=== PATIENT | female | born 1990 | race African-American/Black ===

== ENCOUNTER → 2019-05-26 | Outpatient (CLI) | payer OTHER | LOC: OD 09:00 | PROVIDERS: ATTEND Family Medicine | DX: Z32.01 Encounter for pregnancy test, result positive (principal) | CPT/HCPCS: 81025 ==

== ENCOUNTER 2020-01-18 10:10 | Outpatient (CLI) | payer OTHER ==
--- NOTE | 2020-01-18 11:09 | Non Stress Test Report ---
Non Stress Test Datetime Report Generated by CPN: 01/18/2020 11:08 DEMOGRAPHIC Test Number: 1 EGA NST: 39.6 INDICATION Indication for Study (NST) Other: repeat NST NR in office VITAL SIGNS Temperature - NST: 97.7 Pulse - NST: 89 RESP - NST: 16 NBPSYS NST: 106 NBPDIA NST: 68 MONITORING Monitor Explained: Monitor Explained; Test Explained; Patient Verbalized Understanding Time on Monitor: 01/18/2020 10:23 Time off Monitor: 01/18/2020 10:53 NST INTERVENTIONS NST Interventions: PO Hydration; Reposition Patient Physician Notified NST: J. Crenshaw, CNM BABY A: [id number] BABY A Movement : Present Contraction Frequency : occasional FHR Baseline : 135 Accelerations : 15X15 Decelerations : None Variability : Moderate 6-25bpm NST Review: Meets Criteria for Reactive NST NST Review and Verified By : HODAN Horton Results: Reactive NST REPORT Report Trigger: Send Report
== END 2020-01-18 11:02 | disposition home or self-care (01) ==
LOC: LC 10:10
PROVIDERS: ATTEND Obstetrics & Gynecology
DX: Z36.89 Encounter for other specified antenatal screening (principal); Z3A.39 39 weeks gestation of pregnancy; Z88.0 Allergy status to penicillin
CPT/HCPCS: 59025

== ENCOUNTER 2020-01-22 12:02 | Outpatient (CLI) | payer OTHER ==
[2020-01-22 12:36] LABS: APPEARANCE,URINE SLIGHTLY-CLOUDY; BILIRUBIN,URINE NEGATIVE (NEGATIVE); COLOR,URINE YELLOW; GLUCOSE, URINE NEGATIVE (NEGATIVE); KETONES,URINE NEGATIVE (NEGATIVE); LEUKOCYTE ESTERASE,URINE TRACE (NEGATIVE); NITRITE,URINE NEGATIVE (NEGATIVE); PROTEIN,URINE NEGATIVE (NEGATIVE); UROBILINOGEN,URINE NEGATIVE mg/dL (<2.0)
[2020-01-22 13:01] LABS: URINE AMPHETAMINES SCREEN NEGATIVE; URINE BARBITURATES SCREEN NEGATIVE; URINE BENZODIAZEPINES SCREEN NEGATIVE; URINE COCAINE SCREEN NEGATIVE; URINE MARIJUANA (THC) SCREEN NEGATIVE; URINE METHADONE SCREEN NEGATIVE; URINE PHENCYCLIDINE SCREEN NEGATIVE
--- NOTE | 2020-01-22 13:36 | Non Stress Test Report ---
Non Stress Test Datetime Report Generated by CPN: 01/22/2020 13:35 DEMOGRAPHIC Test Number: 2 EGA NST: 40.3 INDICATION Indication for Study (NST) Other: possible SROM MONITORING Monitor Explained: Monitor Explained; Test Explained; Patient Verbalized Understanding Time on Monitor: 01/22/2020 12:31 Time off Monitor: 01/22/2020 13:03 NST INTERVENTIONS NST Interventions: PO Hydration Physician Notified NST: Dr Basil BABY A: [id number] BABY A Movement : Present Contraction Frequency : occasional FHR Baseline : 140 Accelerations : 15X15 Decelerations : None Variability : Moderate 6-25bpm NST Review: Meets Criteria for Reactive NST NST Review and Verified By : TMartin,RN NST Results: Reactive NST REPORT Report Trigger: Send Report
== END 2020-01-22 13:20 | disposition home or self-care (01) ==
LOC: LC 12:02
PROVIDERS: ATTEND Obstetrics & Gynecology
DX: O47.1 False labor at or after 37 completed weeks of gestation (principal); Z3A.40 40 weeks gestation of pregnancy; Z88.0 Allergy status to penicillin
CPT/HCPCS: 59025; 80307; 81005; 84112; 94760

== ENCOUNTER 2020-01-24 05:34 | Inpatient (IN) | payer OTHER ==
[2020-01-24] MEDS ORDERED: ONDANSETRON 4 MG TAB.RAPDIS ONE (06:07)
[2020-01-24 06:19] LABS: APPEARANCE,URINE CLEAR; BILIRUBIN,URINE NEGATIVE (NEGATIVE); COLOR,URINE YELLOW; GLUCOSE, URINE NEGATIVE (NEGATIVE); KETONES,URINE NEGATIVE (NEGATIVE); LEUKOCYTE ESTERASE,URINE NEGATIVE (NEGATIVE); NITRITE,URINE NEGATIVE (NEGATIVE); PROTEIN,URINE 30 mg/dL (NEGATIVE); URINE SPECIFIC GRAVITY 1.013; UROBILINOGEN,URINE NEGATIVE mg/dL (<2.0)
[2020-01-24 06:36] LABS: URINE AMPHETAMINES SCREEN NEGATIVE; URINE BARBITURATES SCREEN NEGATIVE; URINE BENZODIAZEPINES SCREEN NEGATIVE; URINE COCAINE SCREEN NEGATIVE; URINE MARIJUANA (THC) SCREEN NEGATIVE; URINE METHADONE SCREEN NEGATIVE; URINE PHENCYCLIDINE SCREEN NEGATIVE
[2020-01-24] MEDS ORDERED: OXYTOCIN 10 UNIT/ML VIAL ONE (07:23)
[2020-01-24] MEDS ORDERED: MISOPROSTOL 0.2 MG TABLET ONE (07:24)
[2020-01-24] MEDS ORDERED: LIDOCAINE 1% INJ-PF (10 MG/ML) 30 ML SDV ONE (07:24)
[2020-01-24] MEDS ORDERED: OXYTOCIN/0.9 % SODIUM CHLORIDE 30 UNIT/500 ML RTUINJ ONE (07:24)
[2020-01-24] MEDS ORDERED: CLINDAMYCIN 900 MG/D5W RTU 900 MG/50 ML RTUPB IV ONE ×2 (07:24→15:17)
--- NOTE | 2020-01-24 07:46 | Admission Physical ---
Datetime Report Generated by CPN: 01/24/2020 07:46 CURRENT ADMISSION Chief Complaint: Uterine Contractions Indication for Induction: Not Applicable Admit Impression : Term, Intrauterine ; Active Labor; Intact Membranes Admit Plan: Admit to Unit; Initiate Labor Protocol ALLERGIES Medication Allergies: Yes Medication Allergies: Penicillins (01/22/2020) Latex: No Latex Allergies Food Allergies: None Environmental Allergies: None OBSTETRICAL HISTORY EDC: 01/19/2020 00:00 : 1 Para: 0 Term: 0 : 0 SAB: 0 IAB: 0 Ectopic: 0 Livin Cesareans: 0 VBACs: 0 Multiple Births: 0 Gestational Diabetes: No Rh Sensitization: No Incompetent Cervix: No BRE: No Infertility: No ART Treatment: No Uterine Anomaly: No IUGR: No Hx Previous C/S: No Macrosomia: No Hx Loss/Stillborn: Yes PIH: No Hx : No Placenta Previa/Abruption: No Depression/PP Depression: No PTL/PROM: No Post Hemorrhage: No Current Procedures: Ultrasound; NST Obstetrical History Comments: G1- Current SEE RECORDS Alcohol: No Marijuana : No Cocaine: No Other Illicit Drugs: No Cigarettes: Never Smoker. [id number] MEDICAL HISTORY Diabetes: No Blood Transfusion: No Pulmonary Disease (Asthma, TB): Yes Breast Disease: No Hypertension: No [employer] Surgery: No Heart Disease: No Hosp/Surgery: No Autoimmune Disorder: No Anesthetic Complications: Unknown Kidney Disease: No Abnormal Pap Smear: Yes Neuro/Epilepsy: No Psychiatric Disorders: Yes Other Medical Diseases: No Hepatitis/Liver Disease: No Significant Family History: No Varicosities/Phlebitis: No Trauma/Violence : No Thyroid Dysfunction: No Medical History Comments: Anxiety used klonopin prior to , asthma last epidsode over ten years ago, no inhaler, HPV cleared at 6 month check up INFECTIOUS HISTORY Gonorrhea: No Genital Herpes: No Chlamydia: No Tuberculosis: No Syphilis: No Hepatitis: No HIV/AIDS Exposure: No Rash or Viral Illness: No HPV: Yes PHYSICAL EXAM General: Normal HEENT: Normal Neurologic: Normal Thyroid: Normal Heart: Normal Lungs: Normal Breast: Normal Back: Normal Abdomen: Normal Genitourinary Exam: Normal Extremities: Normal DTRs: Normal Pelvic Type: Adequate Vital Signs: Reviewed VAGINAL EXAM Dilatation: 4 Effacement: 90 Station: -2 MEMBRANES Pooling: Negative Membranes: Intact FETUS A EGA: 40.5 Monitoring: External US FHR- Baseline: 130 Variability: Moderate 6-25bpm Accelerations: 15X15 Decelerations: None FHR Category: Category I Estimated Weight (gm): 3500 Presentation: Vertex PLANS FOR LABOR AND DELIVERY Labor and Delivery: None Pain Management: Natural; Medications; Epidural Feeding Preference: Breast Benefit of Breast Feed Discussed: Yes Circumcision: Yes INFORMED CONSENT Signature: with User ID: [email or web address]
[2020-01-24 07:56] LABS: ABSOLUTE BASOPHILS # (AUTO) 0.1 10^3/uL (0.0-0.2); ABSOLUTE LYMPHOCYTES (AUTO) 1.8 10^3/uL (0.5-4.7); ABSOLUTE MONOCYTES (AUTO) 0.5 10^3/uL (0.1-1.4); ABSOLUTE NEUT (AUTO) 8.6 10^3/uL (1.7-8.2); BASOPHILS % (AUTO) 0.7 % (0-2); HEMATOCRIT 37.4 % (36.0-47.0); HEMOGLOBIN 12.8 g/dL (12.0-15.5); LYMPHOCYTES % (AUTO) 16.1 % (13-45); MEAN CORPUSCULAR HEMOGLOBIN 30.6 pg (27.0-33.4); MEAN CORPUSCULAR HGB CONC 34.2 g/dL (32.0-36.0); MEAN CORPUSCULAR VOLUME 90 fl (80-97); MONOCYTES % (AUTO) 4.8 % (3-13); PLATELET COUNT 125 10^3/uL (150-450); RED BLOOD COUNT 4.17 10^6/uL (3.72-5.28); RED CELL DISTRIBUTION WIDTH 14.5 % (11.5-14.0); SEGMENTED NEUTROPHILS % (AUTO) 78.4 % (42-78); TOTAL CELLS COUNTED % (AUTO) 100 %
[2020-01-24] MEDS ORDERED: EPHEDRINE SULFATE INJ 50 MG/1 ML AMPULE ONE (08:10)
[2020-01-24] MEDS ORDERED: FENTANYL/BUPIVACAINE/NS/PF 300 MCG/150 ML RTUINJ EPI ONE (08:11)
[2020-01-24] MEDS ORDERED: ROPIVACAINE HCL 0.2% INJ/PF (2 MG/ML) 20 ML SDV ONE (08:11)
[2020-01-24] MEDS: RINGERS SOLUTION,LACTATED 1,000 ML IV PRN ×2 (09:06→10:52)
[2020-01-24] MEDS ORDERED: DEXTROSE 5%-WATER 250 ML IV PRN (13:01)
[2020-01-24] MEDS ORDERED: ROPIVACAINE HCL 0.5% INJ/PF (5 MG/1 ML) 30 ML SDV ONE (14:10)
[2020-01-24] MEDS ORDERED: ACETAMINOPHEN WITH CODEINE #3 TABLET PO PRN (17:08)
[2020-01-24] MEDS ORDERED: DIPH/PERTUSS(ACELL)/TETANUS VAC/PF 0.5 ML SYR (>=10YO) IM PRN (17:08)
[2020-01-24] MEDS ORDERED: PROMETHAZINE HCL 25 MG SUPP.RECT PR PRN (17:08)
[2020-01-24] MEDS ORDERED: ZOLPIDEM TARTRATE 5 MG TABLET PO PRN (17:08)
[2020-01-24] MEDS ORDERED: OXYTOCIN/0.9 % SODIUM CHLORIDE 30 UNIT/500 ML RTUINJ IV PRN (17:08)
[2020-01-24] MEDS ORDERED: MAGNESIUM HYDROXIDE SUSP 30 ML UDCUP PO PRN (17:08)
[2020-01-24] MEDS ORDERED: MEASLES,MUMPS&RUBELLA VACC/PF 0.5 ML VIAL SUBCUT PRN (17:08)
[2020-01-24] MEDS ORDERED: ACETAMINOPHEN 650 MG SUPP.RECT PR PRN (17:08)
[2020-01-24] MEDS ORDERED: DIBUCAINE 1% OINTMENT 28 GM TP PRN (17:08)
[2020-01-24] MEDS ORDERED: DIPHENHYDRAMINE HCL 25 MG CAPSULE PO PRN (17:08)
[2020-01-24] MEDS ORDERED: PSEUDOEPHEDRINE HCL 30 MG TABLET PO PRN (17:08)
[2020-01-24] MEDS ORDERED: PROMETHAZINE HCL 25 MG TABLET PO PRN (17:08)
[2020-01-24] MEDS ORDERED: PROMETHAZINE HCL INJ 25 MG/1 ML VIAL IV PRN (17:08)
[2020-01-24] MEDS ORDERED: NA PHOS,M-B/NA PHOS,DI-BA (ADULT) 133 ML ENEMA PR PRN (17:08)
--- NOTE | 2020-01-24 19:23 | Warning Signs in Babies ---
VOD Warning Signs Datetime Report Generated by [facility]: 01/24/2020 19:22 VOD#608 -Warning Signs in Babies: Viewed with Parent(s)/Family (01/24/2020 19:15:Lauryn Billy RN)
--- NOTE | 2020-01-24 19:24 | Delivery Summary ---
Del Sum A-C Datetime Report Generated by CPN: 01/24/2020 19:24 DELIVERY PERSONNEL DELIVERY PERSONNEL: [id number] Delivery Doctor:: Tyson Reno MD DIRECTOR SUMMER SESSIONS:: Ant Burnett, DIRECTOR SUMMER SESSIONS Labor and Delivery Nurse:: Myrna Macario RN Nursery Nurse:: Allie Carrington RN Burlapper/CELL OPERATION SUPERVISOR: Vesta Mcgill CST Burlapper/CELL OPERATION SUPERVISOR: Nela [employer], EMPLOYEE RELATIONS CONSULTANT MATERNAL INFORMATION Delivery Anesthesia: Epidural Medications After Delivery: Pitocin 30 Units in 500ml NS/D5W Maternal Complications: None LABOR SUMMARY EDC: 01/19/2020 00:00 No. Babies in Womb: 1 Attempted: No Labor Anesthesia: Epidural LABOR INFORMATION Reason for Induction: Not Applicable Onset of Labor: 01/24/2020 10:43 Complete Dilatation: 01/24/2020 14:32 Oxytocin: Augmentation Group B Beta Strep: pos Antibiotics # of Doses: 2 Antibiotics Time of Last Dose: 01/24/2020 15:28 Name of Antibiotic Given: clindamycin Steroids Given: None Reason Steroids Not Administered: Not Applicable MEMBRANES Membranes Rupture Method: Artificial Rupture of Membranes: 01/24/2020 09:16 Length of Rupture (hr): 7.63 Amniotic Fluid Color: Clear Amniotic Fluid Amount: Moderate Amniotic Fluid Odor: None STAGES OF LABOR Stage 1 hr: 3 Stage 1 min: 49 Stage 2 hr: 2 Stage 2 min: 22 Stage 3 hr: 0 Stage 3 min: 3 Total Time in Labor hr: 6 Total Time in Labor min: 14 VAGINAL DELIVERY Episiotomy: None Laceration #1: Perineal Laceration Repair: Yes Laceration Repair Note: 2-0 vicryl repaired Sponge Count Correct: N/A CSECTION DELIVERY Primary Indication: N/A Secondary Indication: N/A CSection Incidence: N/A Labor: N/A Elective: N/A CSection Incision: N/A BABY A INFORMATION Infant Delivery Date/Time: 01/24/2020 16:54 Method of Delivery: Vaginal Nurse Controlled Delivery: No Born in Route : No : N/A Forceps: N/A Vacuum Extraction: N/A Shoulder Dystocia : No PRESENTATION/POSITION BABY A Presentation: Cephalic Cephalic Presentation: Vertex Vertex Position: Left Occipital Anterior Breech Presentation: N/A PLACENTA INFORMATION BABY A Placenta Delivery Time : 01/24/2020 16:57 Placenta Method of Delivery: Spontaneous Placenta Status: Delivered SCORES BABY A Heart Rate 1 min: >100 bpm Resp Effort 1 min: Good Cry Reflex Irritability 1 min: Cough or Sneeze or Pulls Away Muscle Tone 1 min: Active Motion Color 1 min: Blue/Pale SCORE 1 MIN: 8 Heart Rate 5 min: >100 bpm Resp Effort 5 min: Good Cry Reflex Irritability 5 min: Cough or Sneeze or Pulls Away Muscle Tone 5 min: Active Motion Color 5 min: Body [place], Extremities Blue SCORE 5 MIN: 9 INFANT INFORMATION BABY A Gestational Age at Delivery: 40.5 Gestational Status: Full Term- 39- 40.6 Weeks Outcome : Liveborn Condition : Stable Infant Sex: Male IDENTIFICATION BABY A Infant Verification Date/Time: 01/24/2020 18:08 ID Band Number: [id number] Mother's Name Verified: Yes Infant RN Verifying : ALFREDick, RN Additional Verifying Personnel: Rachel, HODAN WEIGHT/LENGTH BABY A Birthweight (gm): 3390 Infant Weight (lb): 7 Weight (oz): 8 Infant Length (in): 20.00 Length (cm): 50.80 CORD INFORMATION BABY A No. Cord Vessels: 3 Nuchal Cord : N/A Infant Suction: Mouth; Nose; Pharynx ASSESSMENT BABY A Infant Complications: None Physical Findings at Delivery: Within Normal Limits Skin to Skin: Yes Skin to Skin Time (min): 45 Transferred To: Remains with Mother BABY B INFORMATION : N/A SIGNATURES Signature: with User ID: [email or web address]
--- NOTE | 2020-01-24 19:24 | Birth Certificate Data ---
Cert Data Datetime Report Generated by CPN: 01/24/2020 19:24 CERTIFICATE DATA 47a. Care: Yes (01/18/2020 10:26:DC Barclay) 47b. Date of First Visit: 06/11/2019 00:00 (01/18/2020 10:26:DC Barclay) 47c. Date of Last Visit: 01/18/2020 00:00 (01/18/2020 10:26:DC Barclay) 47d. Number of Visits: 12 (01/18/2020 10:26:DC Barclay) 48a. Number of Prev Live Births: 0 (01/18/2020 10:26:Per Chandra RN) 48b. Now Livin (01/18/2020 10:26:Melva Kennedy RN) 48c. Live Births Now : 0 (01/18/2020 10:26:QS system process) 48e. Losses: 0 (01/18/2020 10:26:Per Chandra RN) RISK FACTORS IN THIS 49a. Diabetes: No (01/18/2020 10:26:Per Chandra RN) 49b. Hypertension: No (01/18/2020 10:26:Per Chandra RN) 49c. Previous Births: 0 (01/18/2020 10:26:Melva Kennedy RN) 49d. Stillborns: No (01/18/2020 10:26:Tiffany Pike RN) 49d. IUGR: No (01/18/2020 10:26:Per Chandra RN) 49e. Infertility Treatment: No (01/18/2020 10:26:Per Chandra RN) 49f. Previous Cesareans: 0 (01/18/2020 10:26:Per Chandra RN) Mother's Height 50b. Height Inches: 65 (01/18/2020 10:39:QS system process) Mother's Weight 51a. Pre- Weight (lbs): 143 (01/18/2020 10:26:DC Barclay) 51b. Weight at Delivery (lbs): 187 (01/22/2020 13:06:QS system process) Infections Present/Treated 53a. Gonorrhea: No (01/18/2020 10:26:Per Chandra RN) Results this Hospital Visit : Negative (01/18/2020 10:26:DC Barclay) 53b. Syphilis: No (01/18/2020 10:26:Per Chandra RN) Results this Hospital Visit: NONREACTIVE (01/24/2020 07:44:QS system process) 53c. Chlamydia: No (01/18/2020 10:26:Per Chandra RN) Results this Hospital Visit: Negative (01/18/2020 10:26:DC Barclay) 53d. Hepatitis B: No (01/18/2020 10:26:Per Chandra RN) Results this Hospital Visit: Negative (01/18/2020 10:26:Per Chandra RN) 53e. Hepatitis C: Negative (01/18/2020 10:26:DC Barclay) 53h. Mother Tested for HBsAG: Yes (01/18/2020 10:26:DC Barclay) 53i. Date Tested: 06/11/2019 00:00 (01/18/2020 10:26:DC Barclay) 53j. Test Result: Negative (01/18/2020 10:26:Per Chandra RN) Obstetric Procedures 54a, b, c. Obstetric Procedures: Ultrasound; NST (01/18/2020 10:26:Per Chandra RN) Cigarette Smoking 55a. 3 Months Before Preg - Ci (01/18/2020 10:26:Per Chandra RN) 55a. Packs: 0 (01/18/2020 10:26:Per Chandra RN) 55b. 1st Trimester of Preg- Ci (01/18/2020 10:26:Per Chandra RN) 55b. Packs: 0 (01/18/2020 10:26:Per Chandra RN) 55c. 2nd Trimester of Preg- Ci (01/18/2020 10:26:Per Chandra RN) 55c. Packs: 0 (01/18/2020 10:26:Per Chandra RN) 55d. 3rd Trimester of Preg- Ci (01/18/2020 10:26:Per Chandra RN) 55d. Packs: 0 (01/18/2020 10:26:Per Chandra RN) Onset of Labor 56a. PROM >12 Hrs: 7.63 (01/18/2020 10::QS system process) 56b. Precipitous Labor <3 Hrs: 6 (01/18/2020 10:26:QS system process) 56c. Prolonged Labor > 20 Hrs: 6 (01/18/2020 10:26:QS system process) 57a. Induction of Labor: Augmentation (01/18/2020 10:26:Elise Prado RN) 57c. Non-Vertex Presentation A: Vertex (01/18/2020 10:26:Tiffany Pike RN) 57d. Steroids - Lung Mat: None (01/18/2020 10:26:Elise Prado RN) 57d. Steroids - Lung Mat: Not Applicable (01/18/2020 10:26:Elise Prado RN) 57e. Antibiotics During Labor: 01/24/2020 15:28 (01/18/2020 10:26:Tiffany Pike RN) 57f. Mat [place] or Temp >100.4: 98.8 (01/18/2020 10:26:Tiffany Pike RN) 57g. Moderate/Heavy Meconium: Clear (01/24/2020 09:16:Myrna Macario RN) 57h. Intolerance of Labor: N/A (01/18/2020 10:26:Tiffany Pike RN) : N/A (01/18/2020 10:26:Tiffany Pike RN) 57i. Epidural/Spinal Anesthesia: Epidural (01/18/2020 10:26:Elise Prado RN) Method of Delivery 58a. Forceps - Unsuccessful A: N/A (01/18/2020 10:26:Tiffany Pike RN) 58b. Vacuum - Unsuccessful A: N/A (01/18/2020 10:26:Tiffany Pike RN) 58c. Presentation at 58c. Presentation at - A : Vertex (01/18/2020 10:26:Tiffany Pike RN) 58c. Presentation at - A : N/A (01/18/2020 10:26:Tiffany Pike RN) 58c. Presentation at - A : Cephalic (01/24/2020 14:32:Myrna Macario RN) Final Route and Method of Del 58d. Baby A Route/Delivery: Vaginal (01/18/2020 10:26:Tiffany Pike RN) 58e. Trial of Labor Attempted: No (01/18/2020 10:26:Elise Prado RN) 58e. Trial of Labor Attempted A: N/A (01/18/2020 10:26:Elise Prado RN) 58e. Trial of Labor Attempted B: N/A (01/18/2020 10:26:Elise Prado RN) Maternal Morbidity 59b. 3rd or 4th Degree Lacs: Perineal (01/18/2020 10:26:Tiffany Pike RN) 59b. 3rd or 4th Degree Lacs: First Degree (01/18/2020 10:26:Tiffany Pike RN) Birthweight Baby A: 3390 (01/18/2020 10:26:Arielle Jansen RN) 60a. Pounds : 7 (01/18/2020 10:26:QS system process) 60b. Ounces: 8 (01/18/2020 10:26:QS system process) 61. GA at Delivery Baby A: 40.5 (01/18/2020 10:26:Tiffany Pike RN) : Full Term- 39- 40.6 Weeks (01/18/2020 10:26:QS system process) 62a. 5 Minute Baby A: 9 (01/18/2020 10:26:QS system process)
[2020-01-24] MEDS: FAMOTIDINE 20 MG TABLET PO SCH (21:28)
[2020-01-24] MEDS: IBUPROFEN 800 MG TABLET PO SCH (21:28)
[2020-01-25] MEDS: DOCUSATE SODIUM 100 MG CAPSULE PO SCH ×3 (00:16→17:11)
[2020-01-25] MEDS: FERROUS SULFATE 325 MG TABLET PO SCH ×3 (00:16→17:11)
[2020-01-25] MEDS: IBUPROFEN 800 MG TABLET PO SCH ×3 (05:44→21:57)
[2020-01-25] MEDS: CLINDAMYCIN 900 MG/D5W RTU 900 MG/50 ML RTUPB IV SCH (07:34)
[2020-01-25 07:53] LABS: HEMATOCRIT 33.3 % (36.0-47.0); HEMOGLOBIN 11.2 g/dL (12.0-15.5); MEAN CORPUSCULAR HEMOGLOBIN 30.5 pg (27.0-33.4); MEAN CORPUSCULAR HGB CONC 33.5 g/dL (32.0-36.0); MEAN CORPUSCULAR VOLUME 91 fl (80-97); PLATELET COUNT 117 10^3/uL (150-450); RED BLOOD COUNT 3.66 10^6/uL (3.72-5.28); RED CELL DISTRIBUTION WIDTH 14.7 % (11.5-14.0); WHITE BLOOD COUNT 15.7 10^3/uL (4.0-10.5)
--- NOTE | 2020-01-25 09:22 | PDOC PROGRESS REPORT ---
Subjective-OB Progress Note for:: 01/25/20 - PP day #1, doing well, UOB, voiding, O+, Rubella Immune, Physical Exam (OB) Vital Signs: Temp Pulse Resp BP Pulse Ox 97.7 F 115 H 17 114/68 99 01/25/20 07:47 01/25/20 07:47 01/25/20 07:47 01/25/20 07:47 01/25/20 07:47 Intake & Output 01/24/20 01/25/20 01/26/20 06:59 06:59 06:59 Intake Total 1000 Output Total 600 Balance 400 Weight 85 kg - General General Appearance: Appears well, Alert In distress: None - PIH/Pre-Eclampsia Clonus: Negative Headache: Absent Epigastric Pain: No Visual Changes: No - Maternal Morbidity 59. Maternal Morbidity (serious complications experinced by the mother associated with labor and delivery: None of the above - Lochia Lochia Amount: Small 10-25 ml Lochia Color: Rubra/Red - Abdomen Description: Soft, Round Hernia Present: No Fundal Description: Firm, Midline Fundal Height: u/u - u/2 - Respiratory Respiratory Status: No respiratory distress - Abdominal Distension: No distension Tenderness: Nontender - Genitourinary Genitourinary Note: voiding - Extremities Upper extremity: Normal inspection Lower extremities: Normal inspection - Neurological Cognition: Normal Orientation: AAOx4 - Psychological Associated symptoms: Normal affect, Normal mood - Skin Skin Temperature: Warm Skin Moisture: Dry Objective-Diagnostic Laboratory: 01/25/20 07:20 01/25/20 07:20 WBC 15.7 H RBC 3.66 L Hgb 11.2 L Hct 33.3 L MCV 91 MCH 30.5 MCHC 33.5 RDW 14.7 H Plt Count 117 L Assessment and Plan(PN) - Assessment and Plan (1) (normal spontaneous vaginal delivery) Is this a current diagnosis for this admission?: Yes - Time Spent with Patient Time with patient: Less than 15 minutes Medications reviewed and adjusted accordingly: Yes - Disposition Anticipated Discharge Disposition: Home, Self Care Anticipated Discharge Timeframe: within 24 hours
[2020-01-25] MEDS: SENNOSIDES/DOCUSATE 8.6-50 MG 1 EACH TABLET PO SCH (09:50)
[2020-01-25] MEDS: FAMOTIDINE 20 MG TABLET PO SCH ×2 (09:50→21:59)
[2020-01-25] MEDS: PRENATAL VITAMIN W DHA CAPSULE PO SCH (09:50)
[2020-01-25] MEDS: GLYCERIN/WITCH HAZEL LEAF 1 EACH MED..WIPE TP PRN (09:53)
[2020-01-25] MEDS: BENZOCAINE/MENTHOL AEROSOL SPRAY 56 ML TOP PRN (09:53)
[2020-01-26] MEDS: IBUPROFEN 800 MG TABLET PO SCH ×2 (05:51→14:35)
[2020-01-26 08:16] VITALS: BP 131/82
[2020-01-26] MEDS: DOCUSATE SODIUM 100 MG CAPSULE PO SCH (09:24)
[2020-01-26] MEDS: FERROUS SULFATE 325 MG TABLET PO SCH (09:24)
[2020-01-26] MEDS: SENNOSIDES/DOCUSATE 8.6-50 MG 1 EACH TABLET PO SCH (09:25)
[2020-01-26] MEDS: FAMOTIDINE 20 MG TABLET PO SCH (09:25)
[2020-01-26] MEDS: PRENATAL VITAMIN W DHA CAPSULE PO SCH (09:25)
[2020-01-26] MEDS: BENZOCAINE/MENTHOL AEROSOL SPRAY 56 ML TOP PRN (09:38)
[2020-01-26 11:50] LABS: HEMATOCRIT 32.1 % (36.0-47.0); MEAN CORPUSCULAR HGB CONC 34.3 g/dL (32.0-36.0); MEAN CORPUSCULAR VOLUME 90 fl (80-97); PLATELET COUNT 122 10^3/uL (150-450); RED BLOOD COUNT 3.55 10^6/uL (3.72-5.28); RED CELL DISTRIBUTION WIDTH 14.8 % (11.5-14.0); WHITE BLOOD COUNT 9.7 10^3/uL (4.0-10.5)
--- NOTE | 2020-01-26 13:17 | PDOC DISCHARGE SUMMARY ---
Impression - Admit/DC Date/PCP Admission Date/Primary Care Provider: 01/24/20 07:22 GIOVANNY DE DIOS MD Discharge Date: 01/26/20 - Discharge Diagnosis (1) (normal spontaneous vaginal delivery) Is this a current diagnosis for this admission?: Yes (2) Perineal laceration during delivery, delivered Is this a current diagnosis for this admission?: Yes (3) Thrombocytopenia Is this a current diagnosis for this admission?: Yes - Assessment Summary: 29yo s/p vaginal delivery ppd2- stable and ready for discharge, understands warning s/s - Additional Information Resuscitation Status: Full Code Discharge Diet: As Tolerated, Regular Discharge Activity: Activity As Tolerated, Balance Activity w/Rest, No Lifting Over 10 Pounds, Pelvic Rest, No tub bath Referrals: GIOVANNY DE DIOS MD [Primary Care Provider] - Prescriptions: Ibuprofen [Motrin 800 mg Tablet] 800 mg PO Q8HP PRN #20 tablet PRN Reason: For Pain Scale 1-3 Home Medications: Pnv 102/Iron/Folate 1/Dss/Dha [Vitafol Fe+ Docusate Combo Pck] 1 each PO DAILY 01/18/20 Ibuprofen [Motrin 800 mg Tablet] 800 mg PO Q8HP PRN #20 tablet 01/26/20 Hospital Course 59. Maternal Morbidity (serious complications experinced by the mother associated with labor and delivery: None of the above Results Laboratory Results: WBC 9.7 10^3/uL (4.0-10.5) 01/26/20 11:28 RBC 3.55 10^6/uL (3.72-5.28) L 01/26/20 11:28 Hgb 11.0 g/dL (12.0-15.5) L 01/26/20 11:28 Hct 32.1 % (36.0-47.0) L 01/26/20 11:28 MCV 90 fl (80-97) 01/26/20 11:28 MCH 31.0 pg (27.0-33.4) 01/26/20 11:28 MCHC 34.3 g/dL (32.0-36.0) 01/26/20 11:28 RDW 14.8 % (11.5-14.0) H 01/26/20 11:28 Plt Count 122 10^3/uL (150-450) L 01/26/20 11:28 Lymph % (Auto) 16.1 % (13-45) 01/24/20 07:44 [place] % (Auto) 4.8 % (3-13) 01/24/20 07:44 Eos % (Auto) 0.0 % (0-6) 01/24/20 07:44 Baso % (Auto) 0.7 % (0-2) 01/24/20 07:44 Absolute Neuts (auto) 8.6 10^3/uL (1.7-8.2) H 01/24/20 07:44 Absolute Lymphs (auto) 1.8 10^3/uL (0.5-4.7) 01/24/20 07:44 Absolute Monos (auto) 0.5 10^3/uL (0.1-1.4) 01/24/20 07:44 Absolute Eos (auto) 0.0 10^3/uL (0.0-0.6) 01/24/20 07:44 Absolute Basos (auto) 0.1 10^3/uL (0.0-0.2) 01/24/20 07:44 Seg Neutrophils % 78.4 % (42-78) H 01/24/20 07:44 Urine Color YELLOW 01/24/20 05:50 Urine Appearance CLEAR 01/24/20 05:50 Urine pH 7.0 (5.0-9.0) 01/24/20 05:50 Ur Specific [place] 1.013 01/24/20 05:50 Urine Protein 30 mg/dL (NEGATIVE) H 01/24/20 05:50 Urine Glucose (UA) NEGATIVE mg/dL (NEGATIVE) 01/24/20 05:50 Urine Ketones NEGATIVE mg/dL (NEGATIVE) 01/24/20 05:50 Urine Blood NEGATIVE (NEGATIVE) 01/24/20 05:50 Urine Nitrite NEGATIVE (NEGATIVE) 01/24/20 05:50 Urine Bilirubin NEGATIVE (NEGATIVE) 01/24/20 05:50 Urine Urobilinogen NEGATIVE mg/dL (<2.0) 01/24/20 05:50 Ur Leukocyte Esterase NEGATIVE (NEGATIVE) 01/24/20 05:50 Urine Ascorbic Acid NEGATIVE (NEGATIVE) 01/24/20 05:50 Urine Opiates Screen NEGATIVE 01/24/20 05:50 Urine Methadone Screen NEGATIVE 01/24/20 05:50 Ur Barbiturates Screen NEGATIVE 01/24/20 05:50 Ur Phencyclidine Scrn NEGATIVE 01/24/20 05:50 Ur Amphetamines Screen NEGATIVE 01/24/20 05:50 U Benzodiazepines Scrn NEGATIVE 01/24/20 05:50 Urine Cocaine Screen NEGATIVE 01/24/20 05:50 U Marijuana (THC) Screen NEGATIVE 01/24/20 05:50 RPR NONREACTIVE (NONREACTIVE) 01/24/20 07:44 Blood Type O POSITIVE 01/24/20 07:44 Antibody Screen NEGATIVE 01/24/20 07:44
[2020-01-26] MEDS: GLYCERIN/WITCH HAZEL LEAF 1 EACH MED..WIPE TP PRN (14:35)
== END 2020-01-26 16:47 | disposition home or self-care (01) | DRG 806 ==
LOC: LC 05:34 → LR 07:22 → 2S 19:50
PROVIDERS: ADMIT Obstetrics & Gynecology Gynecology; ATTEND Obstetrics & Gynecology Gynecology
PROC: 10E0XZZ Delivery of Products of Conception, External Approach (ICD-10-PCS; principal; 2020-01-24)
PROC: 0HQ9XZZ Repair Perineum Skin, External Approach (ICD-10-PCS; 2020-01-24)
DX: O48.0 Post-term pregnancy (principal); O99.12 Other diseases of the blood and blood-forming organs and certain disorders involving the immune mechanism complicating childbirth; Z37.0 Single live birth; O99.824 Streptococcus B carrier state complicating childbirth; O99.52 Diseases of the respiratory system complicating childbirth; O99.344 Other mental disorders complicating childbirth; O70.1 Second degree perineal laceration during delivery; J45.909 Unspecified asthma, uncomplicated; D69.6 Thrombocytopenia, unspecified; F41.9 Anxiety disorder, unspecified; Z3A.40 40 weeks gestation of pregnancy
CPT/HCPCS: 1967; 36415; 80307; 81005; 85025; 85027; 86592; 86850; 86900; 86901; J2590; J2795; J3010; J3490; S0119